=== PATIENT | male | born 1995 | race Caucasian/White ===

== ENCOUNTER 2022-09-21 22:21 | Emergency (ER) | payer OTHER ==
[~2022-09-21] VITALS: Ht 182.9 cm; Wt 97.1 kg
[2022-09-21 22:35] VITALS: BP 130/74
--- NOTE | 2022-09-21 22:38 | NUR ---
to lobby a/w bed ambulatory
--- NOTE | 2022-09-21 23:04 | NUR ---
PT TO BED #11
[2022-09-21] MEDS ORDERED: CEPH-588 PO (23:18)
[2022-09-21] MEDS ORDERED: KETOROLAC 30 MG/ML VIAL IM ONE (23:20)
--- NOTE | 2022-09-21 23:41 | NUR ---
Patient discharged with v/s stable. Written and verbal after care instructions given and explained. Patient alert, oriented and verbalized understanding of instructions. Ambulatory with to home. All questions addressed prior to discharge. ID band removed. Patient advised to follow up with PMD. Rx of KEFLEX given. Patient educated on indication of medication including possible reaction and side effects. Opportunity to ask questions provided and answered.
== END 2022-09-21 23:45 | disposition home or self-care (01) ==
LOC: MED 22:21
DX: L05.91 Pilonidal cyst without abscess (principal); Z79.899 Other long term (current) drug therapy
CPT/HCPCS: 96372; 99283; J1885